=== PATIENT | female | born 1990 | race African-American/Black ===

== ENCOUNTER 2019-02-06 00:48 | Outpatient (CLI) | payer MEDICAID ==
[2019-02-06 01:26] VITALS: BP 124/87
== END 2019-02-06 01:47 | disposition home or self-care (01) ==
LOC: TRG 00:48
PROVIDERS: ATTEND Obstetrics & Gynecology
DX: O36.8130 Decreased fetal movements, third trimester, not applicable or unspecified (principal); Z3A.40 40 weeks gestation of pregnancy
CPT/HCPCS: 59025

== ENCOUNTER 2019-02-11 08:34 | Inpatient (IN) | payer MEDICAID ==
[2019-02-11 09:55] LABS: Basophils % (Auto) 0.2 % (0.0-1.8); Eosinophils % (Auto) 0.4 % (0.0-4.3); Hematocrit 42.2 % (30.3-42.9); Hemoglobin 14.5 gm/dl (10.1-14.3); Lymphocytes # (Auto) 1.6 K/mm3 (1.2-5.4); Lymphocytes % (Auto) 18.2 % (13.4-35.0); Mean Corpuscular HGB Conc 34 % (30-34); Mean Corpuscular Volume 95 fl (79-97); Monocytes # (Auto) 0.7 K/mm3 (0.0-0.8); Platelet Count 292 K/mm3 (140-440); Red Blood Count 4.42 M/mm3 (3.65-5.03); Red Cell Distribution Width 13.8 % (13.2-15.2)
[2019-02-11] MEDS: LACTATED RINGERS 1,000 ML IV SCH ×3 (10:00→20:05)
[2019-02-11] MEDS ORDERED: STADOL IV PRN (11:43)
[2019-02-11] MEDS ORDERED: BRETHINE IVP PRN (11:43)
[2019-02-11] MEDS ORDERED: BRETHINE SUB-Q PRN (11:43)
[2019-02-11] MEDS ORDERED: MINERAL OIL PO PRN (11:43)
[2019-02-11] MEDS ORDERED: XYLOCAINE 2% INFILTRATI ONE ×2 (11:43→19:21)
[2019-02-11] MEDS ORDERED: PITOCin/NS 20 UNIT/1000ML DRIP 20 UNITS/1,000 ML BAG IV SCH (12:00)
[2019-02-11] MEDS ORDERED: PITOCin/NS 30 UNIT/500ML 30 UNITS/500 ML BAG IV SCH (12:00)
[2019-02-11] MEDS ORDERED: LACTATED RINGERS 1,000 ML IV SCH (12:00)
[2019-02-11] MEDS: SUBLIMAZE IV PRN ×2 (17:50→19:25)
--- NOTE | 2019-02-11 20:27 | History and Physical Report ---
History of Present Illness Date of examination: 02/11/19 Date of admission: 02/11/19 08:34 Chief complaint: I'm here to have my baby. History of present illness: Pt is a 28 year old who presents for post dates induction of labor with EDc 02/03/19. Pt has had an uncomplicated course. She is GBS negative. She entered care in the first trimester. 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 Social history: no significant social history - Obstetrical History Expected Date of Delivery: 02/03/19 Actual Gestation: 41 Week(s) 1 Day(s) : 1 Medications and Allergies Allergies Allergy/AdvReac Type Severity Reaction Status Date / Time No Known Allergies Allergy Verified 02/11/19 09:50 Home Medications Medication Instructions Recorded Confirmed Last Taken Type Vit-Fe Fumar-FA [ 1 tab PO QDAY 02/11/19 02/11/19 02/10/19 20:00 History Vitamin] diphenhydrAMINE [Benadryl CAP] 25 mg PO Q8HR PRN 02/11/19 02/11/19 02/10/19 20:00 History valACYclovir [Valtrex] 500 mg PO BID 02/11/19 02/11/19 02/11/19 08:00 History Active Meds: Active Medications Butorphanol Tartrate (Stadol) 1 mg IV Q2H PRN PRN Reason: Pain, Moderate (4-6) Ephedrine Sulfate (Ephedrine Sulfate) 10 mg IV Q2M PRN PRN Reason: Hypotension Fentanyl (Sublimaze) 100 mcg IV Q2H PRN PRN Reason: Labor Pain Last Admin: 02/11/19 19:25 Dose: 100 mcg Documented by: Lactated Ringer's (Lactated Ringers) 1,000 mls @ 125 mls/hr IV DIRECT RODNEY Last Admin: 02/11/19 20:05 Dose: 999 mls/hr Documented by: Oxytocin/Sodium Chloride (Pitocin/Ns 20 Unit/1000ml Drip) 20 units in 1,000 mls @ 125 mls/hr IV DIRECT RODNEY Oxytocin/Sodium Chloride (Pitocin/Ns 30 Unit/500ml) 30 units in 500 mls @ 4 mls/hr IV TITR RODNEY; Protocol Last Titration: 02/11/19 17:30 Dose: 10 mls/hr Documented by: Lactated Ringer's (Lactated Ringers) 1,000 mls @ 125 mls/hr IV DIRECT RODNEY Mineral Oil (Mineral Oil) 30 ml PO QHS PRN PRN Reason: Constipation Terbutaline Sulfate (Brethine) 0.25 mg SUB-Q ONCE PRN PRN Reason: Hyperstimulation/Hypertonicity Terbutaline Sulfate (Brethine) 0.25 mg IVP ONCE PRN PRN Reason: Hyperstimulation/Hypertonicity Review of Systems All systems: negative Genitourinary: contractions - Vital Signs Vital signs: Vital Signs Temp Resp 98.7 F 16 02/11/19 09:00 02/11/19 09:00 Temp Pulse Resp BP Pulse Ox 98.6 F 76 18 141/98 100 02/11/19 16:30 02/11/19 20:19 02/11/19 19:25 02/11/19 20:19 02/11/19 20:16 - Physical Exam Breasts: Cardiovascular: Regular rate, Normal S1, Normal S2 Lungs: Positive: Clear to auscultation, Normal air movement Abdomen: Positive: normal appearance, soft, normal bowel sounds. Negative: distention, tenderness Genitourinary (Female): Positive: normal external genitalia, normal perenium Vulva: both: normal Vagina: Positive: normal moisture. Negative: discharge Cervix: Negative: lesion, discharge Uterus: Positive: normal size, normal contour Adnexa: both: normal Anus/Rectum: Positive: normal perianal skin, heme negative. Negative: rectal mass, hemorrhoids Extremities: Positive: normal Deep Tendon Reflex Grade: Normal +2 - Obstetrical FHR: auscultation normal Cervical Dilatation: 2 Cervical Effacement Percentage: 50 station: -1 Uterine Contraction Pattern: Regular Uterine Tone Measurement Phase: Contraction Uterine Contraction Intensity: Moderate Results Result Diagrams: 02/11/19 09:15 Abnormal lab results 02/11/19 Range/Units 09:15 Hgb 14.5 H (10.1-14.3) gm/dl MCH 33 H (28-32) pg Taliaferro % (Auto) 8.0 H (0.0-7.3) % Seg Neutrophils % 73.2 H (40.0-70.0) % All other labs normal. Assessment and Plan IUP at 41.1 weeks here for induction of labor. Admit to L&D. Begin pitocin. anticipate .
[2019-02-11] MEDS ORDERED: NARCAN 2 MG/2 ML IV PRN (20:30)
--- NOTE | 2019-02-11 20:38 | Anesthesia Consultation ---
Anesthesia Consult and Med Hx Date of service: 02/11/19 - Airway Anesthetic Teeth Evaluation: Good ROM Head & Neck: Adequate Mental/Hyoid Distance: Adequate Mallampati Class: Class II Intubation Access Assessment: Probably Good - Pulmonary Exam CTA: Yes - Cardiac Exam Cardiac Exam: RRR - Pre-Operative Health Status ASA Pre-Surgery Classification: ASA2 Proposed Anesthetic Plan: Epidural - Pulmonary Hx Smoking: No Hx Asthma: No Hx Respiratory Symptoms: No SOB: No COPD: No Home Oxygen Therapy: No Hx Pneumonia: No Hx Sleep Apnea: No - Cardiovascular System Hx Hypertension: No Hx Coronary Artery Disease: No Hx Heart Attack/AMI: No Hx Angina: No Hx Percutaneous Transluminal Coronary Angioplasty (PTCA): No Hx Cardia Arrhythmia: No Hx Pacemaker: No Hx Internal Defibrillator: No Hx Valvular Heart Disease: No Hx Heart Murmur: No Hx Peripheral Vascular Disease: No - Central Nervous System Hx Neuromuscular Disorder: No Hx Seizures: No CVA: No Hx Back Pain: No Hx Psychiatric Problems: No - Gastrointestinal Hx Ulcer: No Hx Gastroesophageal Reflux Disease: No - Endocrine Hx Renal Disease: No Hx End Stage Renal Disease: No Hx Cirrhosis: No Hx Liver Disease: No Hx Insulin Dependent Diabetes: No Hx Non-Insulin Dependent Diabetes: No Hx Thyroid Disease: No Hx Hypothyroidism: No Hx Hyperthyroidism: No - Hematic Hx Anemia: No Hx Sickle Cell Disease: No - Other Systems Hx Alcohol Use: No Hx Substance Use: No Hx Cancer: No Hx Obesity: No
[2019-02-11] MEDS ORDERED: fentaNYL-BUPIV 2 MCG/ML-0.125% 200 MCG/100 ML BAG EPIDURAL SCH (21:00)
--- NOTE | 2019-02-12 01:33 | Procedure Note ---
OB Delivery Note - Delivery Date of Delivery: 02/12/19 Surgeon: SEBASTIÁN ENCISO Estimated blood loss: 200cc - Vaginal Delivery presentation: vertex Delivery position: OA Intrapartum events: PROM->1hr before delivery Delivery induction: oxytocin Delivery monitor: external FHT, external uterine Route of delivery: Delivery placenta: spontaneous Delivery cord: 3 umbilical vessels Episiotomy: none Delivery laceration: 2nd degree Delivery repair: vicryl Anesthesia: epidural Delivery comments: Viable female delivered over intact perineum with no nuchal. placed on maternal abdomen. Cord clamped and cut when done pulsating. Placenta delivered spontaneously and intact with 3vc. Laceration repaired wit 2.0 vicryl. Excellent hemostasis. pt tolerated procedure well. - Infant A at 1 minute: 9 (8 pounds 5 ounces) at 5 minutes: 9 Infant Gender: Female
[2019-02-12] MEDS ORDERED: DULCOLAX PR PRN (03:28)
[2019-02-12] MEDS ORDERED: TUCKS PAD TP PRN (03:28)
[2019-02-12] MEDS ORDERED: TYLENOL PO PRN (03:28)
[2019-02-12] MEDS ORDERED: PHENERGAN PO PRN (03:28)
[2019-02-12] MEDS ORDERED: MILK OF MAGNESIA PO PRN (03:28)
[2019-02-12] MEDS ORDERED: ZOFRAN IV PRN (03:28)
[2019-02-12] MEDS ORDERED: NORCO 5/325 PO PRN (03:28)
[2019-02-12] MEDS ORDERED: SODIUM CHLORIDE FLUSH SYRINGE 10 ML IV NR (03:28)
[2019-02-12] MEDS ORDERED: PHENERGAN PR PRN (03:28)
[2019-02-12] MEDS ORDERED: BENADRYL PO PRN (03:28)
[2019-02-12] MEDS ORDERED: LANSINOH TP PRN (03:28)
[2019-02-12] MEDS: IBUPROFEN PO SCH ×4 (05:47→22:00)
[2019-02-12] MEDS: COLACE PO SCH ×2 (10:00→21:56)
[2019-02-12] MEDS: PRENATAL VITAMIN PO SCH (10:00)
[2019-02-12] MEDS ORDERED: DERMOPLAST TP ONE (14:10)
[2019-02-12 14:21] LABS: Hematocrit 37.4 % (30.3-42.9); Hemoglobin 12.3 gm/dl (10.1-14.3)
[2019-02-12] MEDS ORDERED: DERMOPLAST TP PRN (15:41)
[2019-02-13] MEDS: IBUPROFEN PO SCH (05:16)
[2019-02-13] MEDS ORDERED: BOOSTRIX IM ONE (06:00)
[2019-02-13] MEDS: PRENATAL VITAMIN PO SCH ×2 (10:33→10:34)
[2019-02-13] MEDS: COLACE PO SCH (10:35)
--- NOTE | 2019-02-13 10:42 | Progress Note ---
Subjective - Subjective Date of service: 02/13/19 Interval history: Pt is a 28 year old who presents for post dates induction of labor with EDc 02/03/19. Pt has had an uncomplicated course. She is GBS negative. She entered care in the first trimester. Patient reports: appetite normal, voiding normally, pain well controlled : doing well Objective - Vital Signs Latest vital signs: Vital Signs Temp Pulse Resp BP BP Pulse Ox 02/13/19 08:40 98 F 96 H 18 141/94 02/12/19 23:09 98.0 F 88 20 123/89 97 02/12/19 15:29 97.9 F 95 H 20 118/86 96 02/12/19 11:18 98.2 F 85 16 109/67 94 Intake and Output 02/12/19 02/13/19 02/13/19 22:59 06:59 14:59 Intake Total 120 240 Balance 120 240 Intake: Oral 120 240 Other: Total, Intake Amount 120 240 Voiding Method Toilet # Voids Void 1 1 # Bowel Movements 1 - Exam Abdomen: Present: normal appearance, soft, normal bowel sounds
--- NOTE | 2019-02-13 10:44 | Discharge Summary ---
Providers - Providers Date of Admission: 02/11/19 08:34 Date of discharge: 02/13/19 Attending physician: SEBASTIÁN ENCISO Primary care physician: SEBASTIÁN ENCISO Hospitalization Reason for admission: induction of labor Delivery: Episiotomy: none Laceration: 2nd degree Discharge diagnosis: IUP at term delivered [place] baby: female Hospital course: unremarkable Condition at discharge: Good Disposition: DC-01 TO HOME OR SELFCARE Plan - Discharge Medications Prescriptions: Ferrous Sulfate [Feosol 325 MG tab] 325 mg PO BID #60 tablet Ibuprofen [Motrin] 800 mg PO Q8HR PRN #40 tablet PRN Reason: Pain, Moderate (4-6) HYDROcodone/APAP 5-325 [[place] 5/325] 1 each PO Q4HR PRN #15 tablet PRN Reason: Pain - Provider Discharge Summary Activity: routine, no sex for 6 weeks, no heavy lifting 4 weeks, no strenuous exercise Diet: routine Instructions: routine Additional instructions: [] Smoking cessation referral if applicable(refer to patient education folder for contact #) [] Refer to [facility] Booklet Call your doctor immediately for: * Fever > 100.5 * Heavy vaginal bleeding ( >1 pad per hour) * Severe persistent headache * Shortness of breath * Reddened, hot, painful area to leg or breast * Drainage or odor from incision. * Keep incision clean and dry at all times and follow doctor's instructions regarding bathing/showering - Follow up plan Follow up: SEBASTIÁN ENCISO MD [Primary Care Provider] - 6 Weeks
[2019-02-13 17:15] VITALS: BP 128/85
== END 2019-02-13 17:15 | disposition home or self-care (01) | DRG 775 ==
LOC: LD 08:34 → OB 02-12 02:31
PROVIDERS: ADMIT Obstetrics & Gynecology; ATTEND Obstetrics & Gynecology
PROC: 10E0XZZ Delivery of Products of Conception, External Approach (ICD-10-PCS; principal; 2019-02-12)
PROC: 0KQM0ZZ Repair Perineum Muscle, Open Approach (ICD-10-PCS; 2019-02-12)
PROC: 3E033VJ Introduction of Other Hormone into Peripheral Vein, Percutaneous Approach (ICD-10-PCS; 2019-02-12)
PROC: 3E0R3BZ Introduction of Anesthetic Agent into Spinal Canal, Percutaneous Approach (ICD-10-PCS; 2019-02-12)
PROC: 00HU33Z Insertion of Infusion Device into Spinal Canal, Percutaneous Approach (ICD-10-PCS; 2019-02-12)
PROC: 3E0234Z Introduction of Serum, Toxoid and Vaccine into Muscle, Percutaneous Approach (ICD-10-PCS; 2019-02-13)
DX: O48.0 Post-term pregnancy (principal); O70.1 Second degree perineal laceration during delivery; Z3A.41 41 weeks gestation of pregnancy; Z37.0 Single live birth; Z23 Encounter for immunization
CPT/HCPCS: 36415; 85014; 85018; 85025; 86592; 86850; 86900; 86901; 90471; 90715; G0378; A6250; J2590; J3010; J7120